=== PATIENT | male | born 1970 | race African-American/Black ===

== ENCOUNTER 2021-05-20 10:31 | Inpatient (IN) | payer SELFPAY ==
[2021-05-20 12:13] LABS: #Monocytes 0.4 thou/uL (0.11-0.59); #Neutrophils 6.5 thou/uL (1.40-6.50); %Basophils 0.2 % (0.0-1.0); %Eosinophils 0.4 % (0.0-10.0); %Lymphocytes 12.8 % (21.0-51.0); %Monocytes 4.6 % (0.0-10.0); Hemoglobin 15.9 g/dL (14.0-18.0); Mean Corpuscular HGB CONC 32.2 g/dL (32.0-36.0); Mean Corpuscular Hemoglobin 30.5 pg (27.0-31.0); Mean Corpuscular Volume 94.6 fL (78.0-98.0); Mean Platelet Volume 8.9 fL (7.4-10.4); Platelet Count 309 thou/uL (130-400); Red Blood Cell (RBC) Count 5.22 mill/uL (4.70-6.10)
[2021-05-20 12:19] LABS: Actual Bicarbonate (HCO3v) 20 mEq/L (22-28); Analyzer IN Cardio ER; Base Excess -6.9 mEq/L (-2.0 to +3.0); Calcium, Ionized (venous) 1.12 mmol/L (1.16-1.32); Chloride (VBG) 81 mmol/L (98-106); Hemoglobin (Hb) 16.5 g/dL (13.1-17.2); Potassium (VBG) 6.79 mmol/L (3.70-5.30); Sodium 116.9 mmol/L (133-146); pH (venous) 7.28 (7.32-7.43)
[2021-05-20 12:36] LABS: ALT (SGPT) 45 U/L (8-55); AST (SGOT) 22 U/L (5-34); Albumin 4.7 g/dL (3.5-5.0); Alkaline Phosphatase 141 U/L (40-110); Anion Gap 24 mmol/L (10-20); BUN (Urea Nitrogen) 25 mg/dL (8.9-20.6); Bilirubin, Total 2.8 mg/dL (0.2-1.2); Calc. Creatinine Clearance 0 mL/min (70-130); Calcium 9.7 mg/dL (7.8-10.44); Carbon Dioxide 19 mmol/L (22-29); Chloride 76 mmol/L (98-107); Globulin 3.1 g/dL (2.4-3.5); Protein, Total 7.8 g/dL (6.0-8.3)
[2021-05-20 12:52] LABS: Glucose 1118 mg/dL (70-105); Potassium 7.2 mmol/L (3.5-5.1); Sodium 113 mmol/L (136-145)
[2021-05-20] MEDS ORDERED: Insulin Regular 300 UNITS/3 ML VIAL ONE ×2 (12:53→13:14)
[2021-05-20] MEDS ORDERED: INSULIN REGULAR IN 0.9 % NACL 100 UNIT/100 ML BAG ONE (12:53)
[2021-05-20 12:55] LABS: Bilirubin Negative (Negative); Blood, Urine Negative (Negative); Clarity Clear (Clear); Glucose, Urine (Dipstick) Greater than 1000 mg/dL (Negative); Ketone, Urine 40 mg/dL (Negative); Leukocyte Negative Leu/uL (Negative); Nitrite Negative (Negative); Protein, Urine (Dipstick) Negative (Neg-Trace); Specific Gravity, Urine 1.026 (1.002-1.036); Urobilinogen Normal mg/dL (Less than 2)
[2021-05-20] MEDS ORDERED: Calcium Gluc 4.6 MEQ/10 ML (100 MG/ML) ONE (12:57)
[2021-05-20] MEDS ORDERED: Sodium Bicarb 50 MEQ/50 ML Abboject 8.4% SYRINGE ONE ×2 (12:57→12:58)
[2021-05-20] MEDS ORDERED: Calcium Chloride 1 GM/10 ML Abboject SYRINGE ONE (13:00)
[2021-05-20] MEDS ORDERED: Electrolyte Replacement Protocol 1 EACH IVPB SCH (13:04)
[2021-05-20] MEDS ORDERED: Dextrose 5 %-0.45 % NaCl 1,000 ML IV PRN (13:04)
[2021-05-20] MEDS ORDERED: NS 0.9% w/ 20 MEQ KCL 1,000 ML IV PRN ×2 (13:04)
[2021-05-20] MEDS ORDERED: Sodium Chloride 0.9% 1,000 ML IV PRN ×4 (13:04)
[2021-05-20] MEDS ORDERED: Calcium Carbonate 500 MG ChewTAB PO PRN (13:06)
[2021-05-20] MEDS ORDERED: Acetaminophen 325 MG TAB PO PRN (13:06)
[2021-05-20] MEDS ORDERED: HUMULIN R 100 UNITS in Sodium Chloride 0.9% 100 ML IVPB SCH (13:15)
[2021-05-20] MEDS ORDERED: Albuterol Sulfate 1.25 MG/3 ML NEB ONE (13:18)
[2021-05-20 14:00] LABS: Lipase 34 U/L (8-78); Magnesium 2.4 mg/dL (1.6-2.6); Phosphorus 5.5 mg/dL (2.3-4.7)
[2021-05-20 14:36] LABS: SARS-CoV-2 NAA Rapid Test Not Detected (NotDetected)
[2021-05-20] MEDS ORDERED: hydrALAZINE 20 MG/ML VIAL SLOW IVP PRN (14:40)
[2021-05-20 14:42] LABS: Anion Gap 21 mmol/L (10-20); BUN (Urea Nitrogen) 23 mg/dL (8.9-20.6); Calc. Creatinine Clearance 0 mL/min (70-130); Calcium 11.1 mg/dL (7.8-10.44); Carbon Dioxide 21 mmol/L (22-29); Chloride 89 mmol/L (98-107); Potassium 5.2 mmol/L (3.5-5.1); Sodium 126 mmol/L (136-145)
[2021-05-20] MEDS ORDERED: NIFEdipine XL 30 MG TAB PO SCH ×2 (14:45→21:00)
[2021-05-20 14:46] LABS: Glucose 748 mg/dL (70-105); Glucose 763 mg/dL (70-105)
[2021-05-20 15:56] LABS: Lactic Acid 3.2 mmol/L (0.5-2.2)
[2021-05-20 16:04] LABS: Glucose 599 mg/dL (70-105)
[2021-05-20 16:55] LABS: Glucose 577 mg/dL (70-105)
[2021-05-20 19:02] LABS: Anion Gap 17 mmol/L (10-20); BUN (Urea Nitrogen) 18 mg/dL (8.9-20.6); Calc. Creatinine Clearance 94 mL/min (70-130); Calcium 9.8 mg/dL (7.8-10.44); Carbon Dioxide 21 mmol/L (22-29); Chloride 96 mmol/L (98-107); Glucose 386 mg/dL (70-105); Potassium 4.9 mmol/L (3.5-5.1); Sodium 129 mmol/L (136-145)
[2021-05-20] MEDS: Famotidine 20 MG TAB PO SCH (20:41)
[2021-05-20] MEDS ORDERED: Famotidine/PF 20 mg/2ml Vial SLOW IVP SCH (21:00)
[2021-05-20 23:36] LABS: Anion Gap 16 mmol/L (10-20); BUN (Urea Nitrogen) 15 mg/dL (8.9-20.6); Calc. Creatinine Clearance 112 mL/min (70-130); Calcium 9.4 mg/dL (7.8-10.44); Carbon Dioxide 21 mmol/L (22-29); Chloride 99 mmol/L (98-107); Glucose 281 mg/dL (70-105); Potassium 4.1 mmol/L (3.5-5.1); Sodium 132 mmol/L (136-145)
[2021-05-21] MEDS: D5 1/2 NS w/20 mEq KCL 1,000 ML IV PRN ×2 (01:51→06:12)
[2021-05-21 04:40] LABS: ALT (SGPT) 36 U/L (8-55); AST (SGOT) 23 U/L (5-34); Albumin 3.7 g/dL (3.5-5.0); Alkaline Phosphatase 102 U/L (40-110); Anion Gap 14 mmol/L (10-20); BUN (Urea Nitrogen) 13 mg/dL (8.9-20.6); Bilirubin, Total 2.4 mg/dL (0.2-1.2); Calc. Creatinine Clearance 119 mL/min (70-130); Calcium 8.9 mg/dL (7.8-10.44); Carbon Dioxide 23 mmol/L (22-29); Chloride 99 mmol/L (98-107); Globulin 2.9 g/dL (2.4-3.5); Glucose 273 mg/dL (70-105); Protein, Total 6.6 g/dL (6.0-8.3); Sodium 132 mmol/L (136-145)
[2021-05-21 08:11] LABS: Magnesium 1.7 mg/dL (1.6-2.6); Phosphorus 3.5 mg/dL (2.3-4.7)
[2021-05-21] MEDS ORDERED: Magnesium 2 GM/50 ML 2 GM in Premix Bag 1 BAG IVPB SCH (08:30)
[2021-05-21] MEDS ORDERED: NIFEdipine XL 30 MG TAB PO SCH (09:00)
[2021-05-21] MEDS: Enoxaparin Sodium 40 MG/0.4 ML SYRINGE SC SCH (09:42)
[2021-05-21] MEDS: Famotidine 20 MG TAB PO SCH ×2 (09:42→21:04)
[2021-05-21] MEDS ORDERED: Dextrose 5% in Water 1,000 ML IV PRN (09:53)
[2021-05-21] MEDS ORDERED: Dextrose 50% Abboject 50 ML SYRINGE SLOW IVP PRN (09:53)
[2021-05-21] MEDS ORDERED: HumaLOG 300 UNITS/3 ML VIAL SC PRN (09:53)
[2021-05-21] MEDS ORDERED: D5 LR w/20 mEq KCL 1,000 ML IV SCH (10:00)
[2021-05-21 10:29] LABS: Anion Gap 12 mmol/L (10-20); BUN (Urea Nitrogen) 11 mg/dL (8.9-20.6); Calc. Creatinine Clearance 135 mL/min (70-130); Calcium 8.7 mg/dL (7.8-10.44); Carbon Dioxide 23 mmol/L (22-29); Chloride 100 mmol/L (98-107); Glucose 287 mg/dL (70-105); Potassium 3.9 mmol/L (3.5-5.1); Sodium 131 mmol/L (136-145)
[2021-05-21] MEDS: HumaLOG 300 UNITS/3 ML VIAL SC PRN ×2 (10:56→17:00)
[2021-05-21] MEDS: Lisinopril 10 MG TAB PO SCH (11:56)
[2021-05-21] MEDS ORDERED: HumuLIN 70/30 (300 UNITS/3 ML VIAL) SC SCH (17:00)
[2021-05-21] MEDS ORDERED: Potassium Chloride 20 MEQ in Lactated Ringer's 1,000 ML IVPB SCH (19:00)
[2021-05-22] MEDS: HumaLOG 300 UNITS/3 ML VIAL SC PRN ×2 (06:04→11:19)
[2021-05-22] MEDS ORDERED: HumuLIN 70/30 (300 UNITS/3 ML VIAL) SC SCH (07:30)
[2021-05-22] MEDS: Famotidine 20 MG TAB PO SCH (08:02)
[2021-05-22] MEDS: Enoxaparin Sodium 40 MG/0.4 ML SYRINGE SC SCH (08:02)
[2021-05-22 08:55] LABS: Albumin 3.4 g/dL (3.5-5.0)
[2021-05-22 08:56] LABS: Chloride 101 mmol/L (98-107); Potassium 4.7 mmol/L (3.5-5.1); Sodium 129 mmol/L (136-145)
[2021-05-22 08:57] LABS: Calcium 8.7 mg/dL (7.8-10.44); Glucose 295 mg/dL (70-105); Triglycerides 315 mg/dL (Less than 150)
[2021-05-22 08:58] LABS: Globulin 2.5 g/dL (2.4-3.5); Protein, Total 5.9 g/dL (6.0-8.3)
[2021-05-22 08:59] LABS: Anion Gap 12 mmol/L (10-20); Bilirubin, Total 2.6 mg/dL (0.2-1.2); Carbon Dioxide 21 mmol/L (22-29)
[2021-05-22 09:00] LABS: Alkaline Phosphatase 94 U/L (40-110)
[2021-05-22 09:01] LABS: Calc. Creatinine Clearance 135 mL/min (70-130)
[2021-05-22 09:02] LABS: AST (SGOT) 25 U/L (5-34); BUN (Urea Nitrogen) 13 mg/dL (8.9-20.6); Cholesterol 250 mg/dl (< 200 Desired)
[2021-05-22 09:03] LABS: ALT (SGPT) 32 U/L (8-55); Cardiac Risk 9.3 (Less than 4.5); HDL Cholesterol 27 mg/dL (>60 Neg Risk); LDL Cholesterol, Calculated 160 mg/dL
[2021-05-22] MEDS: Lisinopril 10 MG TAB PO SCH (11:20)
[2021-05-22 14:55] VITALS: BMI 27.3
[2021-05-22 16:27] VITALS: BP 152/87; TEMP 98.1
== END 2021-05-22 17:49 | disposition home or self-care (01) | DRG 638 ==
LOC: ERS 10:31 → CCU 13:12 → ONC 05-21 16:48
PROVIDERS: ADMIT Internal Medicine; ATTEND Internal Medicine
DX: E11.10 Type 2 diabetes mellitus with ketoacidosis without coma (principal); N17.9 Acute kidney failure, unspecified; E87.1 Hypo-osmolality and hyponatremia; I10 Essential (primary) hypertension; E78.5 Hyperlipidemia, unspecified; E86.0 Dehydration; F12.10 Cannabis abuse, uncomplicated; Z83.3 Family history of diabetes mellitus; Z82.49 Family history of ischemic heart disease and other diseases of the circulatory system; E87.5 Hyperkalemia; Z20.822 Contact with and (suspected) exposure to COVID-19
CPT/HCPCS: 0240U; 36415; 36416; 80053; 80061; 81003; 82010; 82805; 83036; 83605; 83690; 83735; 83930; 84100; 85025; 93005; 96365; 96366; 96375; 96376; J1650; J1815; J2001; J3475; J3480; J7120; J7620